=== PATIENT | male | born 1985 | race Caucasian/White ===

== ENCOUNTER 2017-09-24 22:37 | Emergency (ER) | payer MEDICAID ==
[~2017-09-24] VITALS: Ht 167.6 cm; Wt 95.3 kg
[2017-09-24 22:48] VITALS: BP_SYST 117
--- NOTE | 2017-09-24 23:27 | NUR ---
Placed in room 07 . Side rails up. Report given to NIYAH Arcos.
--- NOTE | 2017-09-24 23:45 | NUR ---
Patient placed in Hallway to await MD evaluation.
--- NOTE | 2017-09-24 23:50 | NUR ---
Patient to ER via triage with family with c/o rash to face and eye brow area x 2 days. No new food, soaps, detergents. Patient denies pain, but does c/o itching to the area, patient also noticed to have some slight swelling to the area. Patient sitting in chair in position of comfort with family at side. Awaiting evaluation by ER MD, will continue to observe and assess.
--- NOTE | 2017-09-24 23:55 | NUR ---
Dr Ontiveros at chair side to evaluate patient.
[2017-09-25 00:20] VITALS: BP_SYST 110
--- NOTE | 2017-09-25 00:20 | NUR ---
Patient given written and verbal discharge instructions and verbalizes understanding. ER MD discussed with patient the results and treatment provided. Patient in stable condition. ID arm band removed. Rx of Atarax, Hydrocortisone Cream given. Patient educated on pain management and to follow up with PMD. Pain Scale 0. Opportunity for questions provided and answered. Patient left ER ambulating with slow, steady gait in no acute distress with family at side. Patient's family verbalized understanding of aftercare instructions.
== END 2017-09-25 00:20 | disposition home or self-care (01) ==
LOC: SED 22:37
DX: L20.9 Atopic dermatitis, unspecified (principal)
CPT/HCPCS: 99283

== ENCOUNTER 2019-08-27 05:55 | Inpatient (IN) | payer OTHER, MEDICAID ==
[~2019-08-27] VITALS: Ht 162.6 cm; Wt 106.6 kg
[2019-08-27 06:21] VITALS: BP_SYST 124
--- NOTE | 2019-08-27 06:27 | NUR ---
Ambulatory to bed 3 accompanied by parents.
--- NOTE | 2019-08-27 06:35 | NUR ---
Patient was BIB parents c/o cough, sore throat and intermittent fever x 2 days. Pt was seen at urgent care and was prescribed Zithromax. Per mother pt is more lethargic due to being sick. Pt has down syndrome. NO other injuries/complaints per patient or noted.
--- NOTE | 2019-08-27 06:40 | NUR ---
ER Dr. Macias at bedside examining patient.
--- NOTE | 2019-08-27 07:10 | NUR ---
RT at bedside administering breathing treatment.
--- NOTE | 2019-08-27 07:13 | NUR ---
Report given to NIYAH Christian. All care endorsed.
[2019-08-27] MEDS ORDERED: PIPERACILLIN/TAZO 3.375 GM in NS 50 ML IV ONE (07:15)
[2019-08-27] MEDS ORDERED: VANCOMYCIN HCL 1,000 MG in NS 250 ML IV ONE (07:15)
[2019-08-27] MEDS ORDERED: IPRATROPIUM/ALBUTEROL SULFATE 3 ML AMPUL.NEB (DUONEB) INH ONE (07:15)
[2019-08-27] MEDS ORDERED: AZITHROMYCIN 500 MG in NS 250 ML IV ONE (07:15)
[2019-08-27] MEDS ORDERED: NACL 0.9% 1,000 ML IV ONE (07:15)
--- NOTE | 2019-08-27 07:15 | NUR ---
RT at bedside administering breathing treatment.
[2019-08-27] MEDS ORDERED: IPRATROPIUM/ALBUTEROL SULFATE 3 ML AMPUL.NEB (DUONEB) ONE (07:22)
--- NOTE | 2019-08-27 07:25 | NUR ---
# 18 gauge angiocath placed to RAC. Use of asceptic technique. Opsite placed over site. Blood return noted. Blood for lab drawn from site. Flushed with 10 cc of normal saline. No evidence of infiltration noted. Patient tolerated well.
[2019-08-27] MEDS ORDERED: OSELTAMIVIR PHOSPHATE 75 MG CAPSULE PO ONE (07:30)
--- NOTE | 2019-08-27 07:30 | NUR ---
Administered Zosyn, Vancomycin, Azithromax, Tamiflu and NS as scheduled and ordered by Dr. Ontiveros. Patient tolerated the medications well. Please see eMAR for details.
[2019-08-27 07:53] LABS: BASOPHILS # (AUTO) 0.1 K/uL (0.0-0.2); BASOPHILS % (AUTO) 1.2 % (0.0-2.0); EOSINOPHILS % (AUTO) 0.1 % (0.0-4.0); HEMATOCRIT 46.7 % (36-54); HEMOGLOBIN 15.7 g/dL (14.0-18.0); LYMPHOCYTES # (AUTO) 0.7 K/uL (1.0-5.5); LYMPHOCYTES % (AUTO) 10.4 % (20.5-51.5); MEAN CORPUSCULAR HEMOGLOBIN 30 pg (27-31); MEAN CORPUSCULAR HGB CONC 34 % (32-36); MEAN CORPUSCULAR VOLUME 89 fL (79.0-98.0); MONOCYTES # (AUTO) 0.6 K/uL (0.0-1.0); MONOCYTES % (AUTO) 9.2 % (1.7-9.3); NEUTROPHILS % (AUTO) 79.1 % (40.0-70.0); PLATELET COUNT (AUTO) 117 K/uL (130-430); RED BLOOD CELL COUNT(AUTO) 5.23 MIL/uL (4.2-6.2); RED CELL DISTRIBUTION WIDTH 15.2 % (9.0-15.0); WHITE BLOOD COUNT (AUTO) 6.4 K/uL (4.8-10.8)
[2019-08-27] MEDS ORDERED: AZITHROMYCIN 500 MG/VIAL (ZITHROMAX) IV ONE (07:55)
[2019-08-27] MEDS ORDERED: PIPERACILLIN/TAZOBACTAM 3.375 GM/VIAL (ZOSYN) IV ONE (07:56)
[2019-08-27] MEDS ORDERED: VANCOMYCIN HCL 1000 MG/VIAL IV ONE (07:56)
[2019-08-27 08:11] LABS: CALCIUM 8.1 mg/dL (8.4-11.0); CREATININE 1.06 mg/dL (0.55-1.30); POTASSIUM 3.9 mmol/L (3.5-5.1)
[2019-08-27 08:16] LABS: ALBUMIN 3.3 g/dL (3.4-4.8); TOTAL BILIRUBIN 0.6 mg/dL (0.0-1.0)
--- NOTE | 2019-08-27 10:24 | NUR ---
Patient will try to give us a urine sample again. Dad helping at bedside.
--- NOTE | 2019-08-27 10:44 | NUR ---
Received orders from Dr. Bermeo. Orders placed. Called for bed, spoke with Brianda.
[2019-08-27] MEDS: LevALBUTEROL HCL 1.25 MG/0.5 ML *CONC.* VIAL.NEB (XOPENEX CONC.) INH SCH ×4 (11:00→23:56)
--- NOTE | 2019-08-27 11:02 | NUR ---
Spoke with Remedios, will wait for an isolation room.
--- NOTE | 2019-08-27 11:42 | NUR ---
ADMISSION NOTE Received patient from ER via guragata, received report from ER/ RN. Patient admitted with diagnosis of PNEUMONIA. Patient oriented to hospital routine, call light, toileting and safety-patient .
--- NOTE | 2019-08-27 11:50 | NUR ---
Patient alert/oriented x3 , ambulatory , oxygen saturation 97 % with 2 l/nc denies any pain , discussed to family and patient to plan of care , isolation droplets , handwashing verbalized understanding , father/brother at the bedside.
--- NOTE | 2019-08-27 11:50 | NUR ---
Patient will be admitted to care of DR. ASENCIO. Admitted to MS unit. Will go to room 135B. Belongings list completed. Complete and up to date summary report printed. SBAR report given TO CLAIRE at bedside with opportunity for questions.
[2019-08-27 11:52] VITALS: BP_SYST 139
[2019-08-27 12:56] VITALS: BP_SYST 136
[2019-08-27] MEDS: KCL 20 mEq in D5/0.45NS 1000mL 1,000 ML IV SCH ×2 (13:06→23:41)
[2019-08-27] MEDS ORDERED: AZITHROMYCIN 500 MG in NS 250 ML IV SCH ×2 (14:00→15:00)
[2019-08-27] MEDS: cefTRIAXone 1 GM in D5W 50 ML IV SCH (15:37)
[2019-08-27 15:38] VITALS: BP_SYST 144
--- NOTE | 2019-08-27 16:13 | NUR ---
Afebrile , due antibiotic given with out adverse reaction. Addendum: 08/27/19 at 1616 by Remedios Batista RN on droplets isolation positive influenza B, family was informed proper handwashing,protective barrier verbalized understanding.
--- NOTE | 2019-08-27 16:46 | NUR ---
CONSULTATION PAGED REASON FOR CONSULTATION:PNEUMONIA WAS CONSULT CALLED?Y PERSON WHO WAS NOTIFIED:LILLY CONSULTING PHYSICIAN:LIONEL TOWNSEND ( BULK [employer]US[employer] CASING TIER OFF) CORPORATE EVENTS DIRECTOR SPECIALTY:ID CORPORATE EVENTS DIRECTOR PHONE NUMBER:[phone] REQUESTING PHYSICIAN:DARIA PHAN
[2019-08-27] MEDS: ACETAMINOPHEN 325 MG TABLET PO PRN (18:04)
--- NOTE | 2019-08-27 19:20 | NUR ---
OPENING NOTE RECEIVED CARE OF PT AND SBAR REPORT. PT IS AWAKE AND ALERT, ABLE TO VERBALIZE NEEDS, FAMILY IS AT BEDSIDE. PT SITTING UP IN BED, BREATHING IS EVEN AND UNLABORED TO O2 VIA NC AT 3L. NO S/S OF RESPIRATORY DISTRESS NOTED. IVF INFUSING AT ORDERED RATE, NO S/S OF INFILTRATION AT IV SITE. DROPLET PRECAUTIONS ARE IN PLACE. SAFETY PRECAUTIONS MAINTAINED: BED IS LOCKED IN LOWEST POSITION, SIDE RAILS UP X2, CALL LIGHT IS WITH PT. WILL CONTINUE TO MONITOR.
[2019-08-27] MEDS: OSELTAMIVIR PHOSPHATE 75 MG CAPSULE PO SCH (21:22)
[2019-08-27] MEDS: ENOXAPARIN SODIUM 40 MG/0.4 ML SYRINGE SUBCUT SCH (21:23)
--- NOTE | 2019-08-27 21:23 | NUR ---
MEDICATION PASS SCHEDULED TAMIFLU AND LOVENOX ADMINISTERED. MEDICATION INDICATIONS AND POTENTIAL SIDE EFFECTS DISCUSSED WITH PT AND FAMILY, FAMILY VERBALIZED UNDERSTANDING. NO S/S OF ACUTE DISTRESS. IVF INFUSING AT ORDERED RATE. SAFETY AND FALL PRECAUTIONS MAINTAINED. DROPLET PRECAUTIONS ARE IN PLACE. WILL MONITOR.
--- NOTE | 2019-08-27 23:41 | NUR ---
IVF BAG CHANGE NEW BAG HUNG AND REGULATED TO INFUSE AT ORDERED RATE. NO S/S OF INFILTRATION AT IV SITE. SAFETY PRECAUTIONS ARE IN PLACE. DROPLET PRECAUTIONS MAINTAINED. WILL MONITOR.
[2019-08-28 00:18] VITALS: BP_SYST 115
--- NOTE | 2019-08-28 01:45 | NUR ---
RN ROUNDS: PT RESTING IN BED, BREATHING IS UNLABORED, NO S/S OF ACUTE DISTRESS. PT'S FAMILY IS AT BEDSIDE. IVF INFUSING AT ORDERED RATE. SAFETY AND DROPLET PRECAUTIONS ARE IN PLACE. WILL MONITOR.
[2019-08-28] MEDS: LevALBUTEROL HCL 1.25 MG/0.5 ML *CONC.* VIAL.NEB (XOPENEX CONC.) INH SCH ×6 (03:00→23:08)
--- NOTE | 2019-08-28 03:35 | NUR ---
RN ROUNDS: PT RESTING IN BED WITH HIS FAMILY AT BEDSIDE. NO S/S OF ACUTE DISTRESS. BREATHING IS UNLABORED TO O2 AT 3L VIA NC. SAFETY AND DROPLET PRECAUTIONS REMAIN IN PLACE. WILL MONITOR.
--- NOTE | 2019-08-28 05:31 | NUR ---
SPOKE TO DR. ASENCIO TO REPORT PT'S FAMILY REQUEST FOR COUGH MEDICATION AND STOOL SOFTENER. NEW ORDERS RECEIVED. WILL IMPLEMENT.
--- NOTE | 2019-08-28 06:34 | NUR ---
CLOSING NOTE PT IS AWAKE AND ALERT, ABLE TO VERBALIZE NEEDS, FAMILY IS AT BEDSIDE. PT SITTING UP IN BED, BREATHING IS EVEN AND UNLABORED TO O2 VIA NC AT 3L. NO S/S OF RESPIRATORY DISTRESS NOTED. IVF INFUSING AT ORDERED RATE, NO S/S OF INFILTRATION AT IV SITE. DROPLET PRECAUTIONS ARE IN PLACE. SAFETY PRECAUTIONS MAINTAINED: BED IS LOCKED IN LOWEST POSITION, SIDE RAILS UP X2, CALL LIGHT IS WITH PT. WILL ENDORSE CARE TO DAY SHIFT RN.
[2019-08-28] MEDS: DOCUSATE SODIUM 100 MG CAPSULE PO SCH (09:00)
[2019-08-28] MEDS: OSELTAMIVIR PHOSPHATE 75 MG CAPSULE PO SCH ×2 (10:29→21:28)
[2019-08-28] MEDS: AZITHROMYCIN 500 MG in NS 250 ML IV SCH (10:30)
[2019-08-28] MEDS: guaiFENesin/DEXTROMETHORPHAN 10 ML UDC PO PRN ×2 (10:32→22:20)
[2019-08-28 12:14] VITALS: BP_SYST 130
[2019-08-28] MEDS: cefTRIAXone 1 GM in D5W 50 ML IV SCH (14:19)
[2019-08-28] MEDS: KCL 20 mEq in D5/0.45NS 1000mL 1,000 ML IV SCH (14:25)
[2019-08-28 16:38] VITALS: BP_SYST 129
[2019-08-28 20:00] VITALS: BP_SYST 121
[2019-08-28] MEDS: ENOXAPARIN SODIUM 40 MG/0.4 ML SYRINGE SUBCUT SCH (21:30)
--- NOTE | 2019-08-28 22:50 | NUR ---
DR ASENCIO PAGED THE PATIENT MOTHER REQUESTING FOR SLEEPING MEDICATION AND THE HR AT TIMES GO UP 112/MIN.
--- NOTE | 2019-08-28 23:27 | NUR ---
DR ASENCIO PAGED THE PATIENR FAMILY IS REQUESTING FOR A SLEEPING MEDICATION, DOES NOT SLEEP WELL SINCE ADMISSION.
[2019-08-29] VITALS: BP_SYST 125
[2019-08-29] MEDS: LevALBUTEROL HCL 1.25 MG/0.5 ML *CONC.* VIAL.NEB (XOPENEX CONC.) INH SCH ×5 (03:00→20:39)
[2019-08-29 04:00] VITALS: BP_SYST 146
[2019-08-29] MEDS: KCL 20 mEq in D5/0.45NS 1000mL 1,000 ML IV SCH ×2 (04:03→16:56)
[2019-08-29] MEDS: guaiFENesin/DEXTROMETHORPHAN 10 ML UDC PO PRN ×2 (06:10→16:56)
--- NOTE | 2019-08-29 07:30 | NUR ---
Opening note patient resting in bed at this time, A/ox3, no complaints of pain. IV patent, intact, and infusing fluids as ordered. No adverse side effects noted. No infiltration noted. On droplet isolation precautions for Influenza B, family aware, and educated on reason for precautions. On safety and isolation precautions, HOB kept elevated, bed alarm on, 3 side rails up, call light within reach. patient in stable condition. Will continue to monitor.
[2019-08-29 08:00] VITALS: BP_SYST 132
[2019-08-29] MEDS: DOCUSATE SODIUM 100 MG CAPSULE PO SCH (09:04)
[2019-08-29] MEDS: AZITHROMYCIN 500 MG in NS 250 ML IV SCH (09:04)
[2019-08-29] MEDS: OSELTAMIVIR PHOSPHATE 75 MG CAPSULE PO SCH ×2 (09:04→20:12)
--- NOTE | 2019-08-29 09:30 | NUR ---
medications All morning medications given as ordered. no adverse side effects noted.
--- NOTE | 2019-08-29 11:30 | NUR ---
rounds patient resting in bed at this time, mother at bedside. no complaints of pain. IV patent, intact, and infusing fluids as ordered.
[2019-08-29 12:23] VITALS: BP_SYST 131
--- NOTE | 2019-08-29 13:00 | NUR ---
lunch patient sitting up in bed at this time, eating lunch, tolerating well. no nausea, no vomiting noted. No complaints of abdominal pain.
[2019-08-29] MEDS: cefTRIAXone 1 GM in D5W 50 ML IV SCH (13:22)
--- NOTE | 2019-08-29 15:00 | NUR ---
rounds patient sitting up in bed. Offered to assist patient to the restroom. Mother assisted patient to the restroom and back to bed, patient noted with steady gait. No other needs at this time.
[2019-08-29 16:29] VITALS: BP_SYST 133
--- NOTE | 2019-08-29 18:30 | NUR ---
closing note patient resting in bed at this time, A/ox3, no complaints of pain. IV patent, intact, and infusing fluids as ordered. No adverse side effects noted. No infiltration noted. On droplet isolation precautions for Influenza B, family aware, and educated on reason for precautions. On safety and isolation precautions, HOB kept elevated, bed alarm on, 3 side rails up, call light within reach. patient in stable condition. All needs met.
--- NOTE | 2019-08-29 19:00 | NUR ---
INITIAL NOTES PATIENT IS LAYING IN BED AND STABLE. NO S/S OF RESPIRATORY DISTRESS NOTED. PATIENT WAS SUCCESSFULLY ABLE TO DEMONSTRATE USAGE OF CALL LIGHT AT THIS TIME WITH THE ASSISTANCE OF FAMILY MEMBER. PATIENT FAMILY MEMBER IS BY BEDSIDE. PLAN OF CARE WAS DISCUSSED WITH FAMILY AND PATIENT AT THIS TIME. FALL, SAFETY, ASPIRATION, RESPIRATORY, AND DROPLET PRECAUTIONS WILL BE PLACED THROUGHOUT THE SHIFT.
[2019-08-29 19:10] VITALS: BP_SYST 131
[2019-08-29] MEDS: ENOXAPARIN SODIUM 40 MG/0.4 ML SYRINGE SUBCUT SCH (20:16)
--- NOTE | 2019-08-29 21:00 | NUR ---
ROUNDING PATIENT IS LAYING IN BED AND STABLE. NO S/S OF RESPIRATORY DISTRESS NOTED. FAMILY IS BY BEDSIDE. CALL LIGHT IN REACH. BED IS LOCKED, ALARMED, AND AT THE LOWEST POSITION.
--- NOTE | 2019-08-29 23:30 | NUR ---
DR. ELIF BETHGD AT THIS TIME PER PATIENT REQUEST. PATIENT'S FAMILY MEMBER REQUESTED FOR SCDS, DESPITE PATIENTS EDUCATION ON LOVENOX. PATIENT REQUESTED FOR SLEEPING MEDICATION.
--- NOTE | 2019-08-29 23:40 | NUR ---
DR. ASENCIO CALLED BACK. DR. ASENCIO CALLED BACK. ORDERS RECEIVED. WILL FOLLOW ORDERS.
[2019-08-29] MEDS ORDERED: TEMAZEPAM 15 MG CAPSULE PO ONE (23:45)
[2019-08-30] MEDS ORDERED: TEMAZEPAM 15 MG CAPSULE PO ONE (00:15)
[2019-08-30 00:24] VITALS: BP_SYST 125
--- NOTE | 2019-08-30 01:37 | NUR ---
ROUNDING PATIENT IS SLEEPING IN BED AND STABLE. NO S/S OF RESPIRATORY DISTRESS NOTED. CALL LIGHT IN REACH. BED IS LOCKED, ALARMED, AND AT THE LOWEST POSITION. WILL CONTINUE TO MONITOR.
--- NOTE | 2019-08-30 03:37 | NUR ---
ROUNDING PATIENT IS SLEEPING AND STABLE. NO S/S OF RESPIRATORY DISTRESS NOTED. CALL LIGHT IN REACH. BED IS LOCKED, ALARMED, AND AT THE LOWEST POSITION. WILL CONTINUE TO MONITOR.
[2019-08-30] MEDS: KCL 20 mEq in D5/0.45NS 1000mL 1,000 ML IV SCH ×2 (05:49→16:42)
--- NOTE | 2019-08-30 06:19 | NUR ---
CLOSING NOTES PATIENT IS SLEEPING IN BED AND STABLE. FAMILY IS BY BEDSIDE. PATIENT SHOWS NO S/S OF RESPIRATORY DISTRESS AT THIS TIME. FALL, SAFETY, ASPIRATION, RESPIRATORY, AND DROPLET PRECAUTIONS HAS BEEN PLACED THROUGHOUT THE SHIFT. WILL CONTINUE TO MONITOR UNTIL REPORT IS GIVEN TO AM NURSE BY BEDSIDE.
[2019-08-30] MEDS: LevALBUTEROL HCL 1.25 MG/0.5 ML *CONC.* VIAL.NEB (XOPENEX CONC.) INH SCH ×5 (07:56→23:12)
[2019-08-30 08:09] VITALS: BP_SYST 131
[2019-08-30] MEDS: DOCUSATE SODIUM 100 MG CAPSULE PO SCH (08:37)
[2019-08-30] MEDS: guaiFENesin/DEXTROMETHORPHAN 10 ML UDC PO PRN ×2 (08:37→22:26)
[2019-08-30] MEDS: AZITHROMYCIN 500 MG in NS 250 ML IV SCH (08:37)
[2019-08-30] MEDS: OSELTAMIVIR PHOSPHATE 75 MG CAPSULE PO SCH ×2 (08:37→22:26)
--- NOTE | 2019-08-30 09:00 | NUR ---
Rounds patient ambulated to the restroom and back to bed with steady gait. breakfast tray removed. Water pitcher refilled. No other needs at this time.
--- NOTE | 2019-08-30 11:25 | NUR ---
Rounds patient resting in bed at this time, no complaints of pain. Iv patent, intact, and infusing fluids as ordered. No adverse side effects. No infiltration noted.
[2019-08-30] MEDS: cefTRIAXone 1 GM in D5W 50 ML IV SCH (13:29)
--- NOTE | 2019-08-30 13:45 | NUR ---
ambulating Patient ambulating inside the room. ambulated to the restroom and back to bed with steady gait. linens changed. no other needs at this time.
[2019-08-30 13:56] VITALS: BP_SYST 126
--- NOTE | 2019-08-30 15:30 | NUR ---
rounds patient resting in bed at this time, no complaints of pain. IV patent, intact, and infusing fluids as ordered. No adverse side effects.
[2019-08-30 16:54] VITALS: BP_SYST 131
--- NOTE | 2019-08-30 17:00 | NUR ---
rounds patient resting in bed at this time, no complaints of pain. Water pitcher refilled, no other needs at this time.
--- NOTE | 2019-08-30 18:18 | NUR ---
Closing note Patient resting in bed at this time, A/ox3, no complaints of pain. IV patent, intact, and infusing fluids as ordered. No adverse side effects noted. No infiltration noted. On droplet isolation precautions for Influenza B, family aware, and educated on reason for precautions. On safety and isolation precautions, HOB kept elevated, bed alarm on, 3 side rails up, call light within reach. patient in stable condition. All needs met.
--- NOTE | 2019-08-30 19:30 | NUR ---
OPENING NOTES Received patient, resting in bed watching tablet, no signs of acute respiratory distress observed. IVF running, dressings c/d/i. Family at bedside. Getting breathing treatment. Call light within reach, bed alarm on, bed at lowest position. Will continue to monitor.
[2019-08-30 20:00] VITALS: BP_SYST 129
[2019-08-30] MEDS: TEMAZEPAM 15 MG CAPSULE PO SCH (22:26)
[2019-08-30] MEDS: ENOXAPARIN SODIUM 40 MG/0.4 ML SYRINGE SUBCUT SCH (22:28)
--- NOTE | 2019-08-30 22:30 | NUR ---
Patient is provided with cough syrup and warm blankets. No respiratory distress observed at this time. Will continue to monitor.
--- NOTE | 2019-08-30 23:21 | NUR ---
Patient is resting comfortably. IVF running, dressings c/d/i. Patient has no pain at this time. Will continue to monitor.
[2019-08-31 00:23] VITALS: BP_SYST 128
[2019-08-31] MEDS: ACETAMINOPHEN 325 MG TABLET PO PRN (02:42)
[2019-08-31] MEDS: LevALBUTEROL HCL 1.25 MG/0.5 ML *CONC.* VIAL.NEB (XOPENEX CONC.) INH SCH ×6 (03:00→23:25)
--- NOTE | 2019-08-31 03:37 | NUR ---
Patient is coughing and family requests cough syrup. Patient is offered warm water and patient is not coughing at the moment. Patient also provided Tylenol for pain, patient tolerated well. Will continue to monitor.
[2019-08-31] MEDS: KCL 20 mEq in D5/0.45NS 1000mL 1,000 ML IV SCH ×2 (05:04→20:59)
--- NOTE | 2019-08-31 07:30 | NUR ---
CLOSING NOTES Received patient, resting in bed with mother at bedside, no signs of acute respiratory distress observed. IVF running, dressings c/d/i. Call light within reach, bed alarm on, bed at lowest position. All needs met throughout shift. Will endorse care to oncoming shift.
--- NOTE | 2019-08-31 07:45 | NUR ---
OPENING NOTES Received pt. in bed, family at bedside. no signs of acute respiratory distress observed, no sob. Vitals wnl. no fever. IVF running iv access patent, dressings clean and dry. Safety precaution in place. Call light within reach, bed alarm on, bed at lowest position. encouraged pt and family to call for assist. Will continue to monitor.
[2019-08-31 08:00] VITALS: BP_SYST 120
[2019-08-31] MEDS: AZITHROMYCIN 500 MG in NS 250 ML IV SCH (08:22)
[2019-08-31] MEDS: DOCUSATE SODIUM 100 MG CAPSULE PO SCH (09:09)
[2019-08-31] MEDS: OSELTAMIVIR PHOSPHATE 75 MG CAPSULE PO SCH ×2 (09:09→21:02)
--- NOTE | 2019-08-31 10:00 | NUR ---
pt in chair, no sob, no distress. family at bedside. will cont to monitor.
[2019-08-31 11:14] VITALS: BP_SYST 143
--- NOTE | 2019-08-31 12:12 | NUR ---
pt in chair, watching tv, family at bedside. no c/o pain. no sob, no resp distress.
--- NOTE | 2019-08-31 13:11 | NUR ---
Dietitian Recommendations *Recommend Mechanical soft finely chopped diet w/ gravy and sauce Q meal. *Adhere to food preferences. *May add ONS if PO intake remains <50% by F/U. Please see Nutritional Assessment for details FRNAKIE, RD
[2019-08-31] MEDS: cefTRIAXone 1 GM in D5W 50 ML IV SCH (13:42)
--- NOTE | 2019-08-31 13:47 | NUR ---
pt on chair, no sob, no distress. iv abx given, family at bedside.
[2019-08-31 15:12] VITALS: BP_SYST 106
[2019-08-31] MEDS: guaiFENesin/DEXTROMETHORPHAN 10 ML UDC PO PRN (17:49)
--- NOTE | 2019-08-31 17:50 | NUR ---
pt given cough medication, pt's dad at bedside. pt sitting on chair.
--- NOTE | 2019-08-31 20:07 | NUR ---
closing notes, pt has been stable, no sob, no pain, all meds offered and taken. iv fluids infusing well. pt kept on droplet isolation. endorsed to night nurse.
[2019-08-31] MEDS: ENOXAPARIN SODIUM 40 MG/0.4 ML SYRINGE SUBCUT SCH (21:02)
[2019-08-31] MEDS: TEMAZEPAM 15 MG CAPSULE PO SCH (21:03)
[2019-09-01 00:20] VITALS: BP_SYST 126
[2019-09-01] MEDS: ACETAMINOPHEN 325 MG TABLET PO PRN ×2 (00:30→12:08)
[2019-09-01] MEDS: guaiFENesin/DEXTROMETHORPHAN 10 ML UDC PO PRN ×4 (00:34→21:13)
[2019-09-01] MEDS: LevALBUTEROL HCL 1.25 MG/0.5 ML *CONC.* VIAL.NEB (XOPENEX CONC.) INH SCH ×6 (02:44→23:11)
[2019-09-01 04:00] VITALS: BP_SYST 135
[2019-09-01 08:00] VITALS: BP_SYST 101
[2019-09-01] MEDS: DOCUSATE SODIUM 100 MG CAPSULE PO SCH (08:28)
[2019-09-01] MEDS: OSELTAMIVIR PHOSPHATE 75 MG CAPSULE PO SCH ×2 (08:29→20:58)
[2019-09-01] MEDS: KCL 20 mEq in D5/0.45NS 1000mL 1,000 ML IV SCH ×2 (09:35→21:00)
--- NOTE | 2019-09-01 11:00 | NUR ---
PT ASSISTED TO BATHROOM, PT AMBULATES WELL WITH STEADY GAIT.
[2019-09-01 12:49] VITALS: BP_SYST 120
[2019-09-01] MEDS: cefTRIAXone 1 GM in D5W 50 ML IV SCH (14:23)
[2019-09-01 17:00] VITALS: BP_SYST 138
[2019-09-01 19:00] VITALS: BP_SYST 135
--- NOTE | 2019-09-01 19:06 | NUR ---
CLOSING NOTES, PT HAS BEEN STABLE THE WHOLE SHIFT, GIVEN TYLENOL FOR HEADACHE, NO FEVER. NO UNTOWARD INCIDENT. NO SOB. ALL MEDS OFFERED AND TAKEN. ALL NEEDS MET. WILL ENDORSE TO NIGHT NURSE.
--- NOTE | 2019-09-01 20:00 | NUR ---
RECEIVED PT IN BED V/S AND ASSESSMENT DONE SAME STABLE ,FAMILY AT BEDSIDE NO DISTRESS NOTED AT THIS TIME
[2019-09-01] MEDS: ENOXAPARIN SODIUM 40 MG/0.4 ML SYRINGE SUBCUT SCH (20:58)
[2019-09-01] MEDS: TEMAZEPAM 15 MG CAPSULE PO SCH (21:00)
[2019-09-02] VITALS (7 sets, daily range): BP systolic 107–143
--- NOTE | 2019-09-02 | NUR ---
PT ASLEEP NO DISTRESS NOTED AT THIS TIME
[2019-09-02] MEDS: LevALBUTEROL HCL 1.25 MG/0.5 ML *CONC.* VIAL.NEB (XOPENEX CONC.) INH SCH ×4 (03:44→15:04)
--- NOTE | 2019-09-02 07:30 | NUR ---
INITIAL NOTE PT RESTING IN BED, NO ACUTE DISTRESS NOTED. PT ON ROOM AIR, BREATHING EVEN AND UNLABORED. DROPLET PRECAUTIONS IN PLACE. CALL LIGHT WITHIN REACH, BED IN LOW AND LOCKED POSITION WITH BED ALARM.
[2019-09-02] MEDS: DOCUSATE SODIUM 100 MG CAPSULE PO SCH (09:12)
[2019-09-02] MEDS: KCL 20 mEq in D5/0.45NS 1000mL 1,000 ML IV SCH (09:14)
--- NOTE | 2019-09-02 09:36 | NUR ---
RN ROUNDS BROTHER AND MOTHER AT BEDSIDE. PT SITTING UP ON BEDSIDE CHAIR. PT COOPERATIVE AND IN PLEASANT MOOD. MORNING MEDICATIONS ADMINISTERED. UPDATED FAMILY ON PLAN OF CARE. POSSIBLE DISCHARGE FOR TODAY.
--- NOTE | 2019-09-02 11:40 | NUR ---
RN ROUNDS PT AWAKE, SITTING IN CHAIR. PT DENIES ANY SOB. FAMILY AT BEDSIDE.
--- NOTE | 2019-09-02 14:00 | NUR ---
RN ROUNDS SCHEDULED ANTIBIOTICS ADMINISTERED. NO CHANGE IN PT ASSESSMENT. FAMILY AT BEDSIDE.
[2019-09-02] MEDS: cefTRIAXone 1 GM in D5W 50 ML IV SCH (14:04)
--- NOTE | 2019-09-02 16:00 | NUR ---
RN ROUNDS NO CHANGE IN ASSESSMENT. FAMILY AT BEDSIDE WILL CONTINUE TO MONITOR.
--- NOTE | 2019-09-02 18:45 | NUR ---
CLOSING NOTE/DR. ASENCIO SPOKE WITH MD AT NURSES STATION. MD TO DISCHARGE PT WITH PRESCRIPTIONS. PT AWAKE, DENIES ANY SOB. IVF INFUSING WELL. CALL LIGHT WITHIN REACH, BED IN LOW AND LOCKED POSITION WITH BED ALARM ON. ALL NEEDS MET THROUGHOUT SHIFT. ENDORSED DISCHARGE TO RISK MANAGEMENT DIRECTOR RN.
== END 2019-09-02 19:30 | disposition home or self-care (01) | DRG 194 ==
LOC: SED 05:55 → SMU 10:40
PROVIDERS: ADMIT Family Medicine; ATTEND Family Medicine
DX: J10.08 Influenza due to other identified influenza virus with other specified pneumonia (principal); Z68.41 Body mass index [BMI] 40.0-44.9, adult; R65.10 Systemic inflammatory response syndrome (SIRS) of non-infectious origin without acute organ dysfunction; J12.9 Viral pneumonia, unspecified; E66.9 Obesity, unspecified; Q90.9 Down syndrome, unspecified
CPT/HCPCS: 36415; 71045; 80053; 83605; 85025; 86710; 87040-TC; 94640; 94760; 96365; 96366; 96367; 99285; G9035; J0456; J0696; J1650; J2543; J3370; J7030; J7050; J7060; J7612; J7620

== ENCOUNTER 2023-07-18 05:30 | Inpatient (IN) | payer OTHER, MEDICAID ==
[~2023-07-18] VITALS: Ht 160 cm; Wt 119.3 kg
[~2023-07-18 05:30] MED LIST: ACET325T PO; BISA-140 PO; DOCU250C71 PO; HYDR-3919 PO; LOVI40 SUBCUT; VITD2000 PO
[2023-07-18] MEDS ORDERED: ACETAMINOPHEN 500 MG TABLET ONE (05:44)
[2023-07-18] MEDS ORDERED: ACETAMINOPHEN 500 MG TABLET PO ONE (07:00)
[2023-07-18] MEDS ORDERED: ceFAZolin SODIUM 2 GM in D5W 100 ML IV ONE (07:00)
[2023-07-18 09:36] VITALS: BP_SYST 134; PULSE 99; RESP 16; TEMP 98.7; O2SAT 94
[2023-07-18] MEDS ORDERED: INSU100V7 SUBCUT (10:41)
[2023-07-18 12:25] VITALS: BP_SYST 149; PULSE 103; RESP 20; TEMP 98.4; O2SAT 95
[2023-07-18] MEDS ORDERED: MENTHOL/ZINC OXIDE 113 GM OINT. TP PRN (15:00)
[2023-07-18 16:00] VITALS: BP_SYST 137; PULSE 107; RESP 18; TEMP 98.2
[2023-07-18 20:00] VITALS: BP_SYST 125; PULSE 100; RESP 19; TEMP 98.7
[2023-07-19] VITALS (8 sets, daily range): BP systolic 124–138; PULSE 92–108; RESP 17–20; TEMP 97.2–98.7; O2SAT 92–96
[2023-07-19] MEDS ORDERED: NALOXONE HCL 0.4 MG/ML AMP (NARCAN) IVP PRN (11:00)
[2023-07-19] MEDS ORDERED: ONDANSETRON HCL 4 MG/2 ML VIAL IVP PRN ×2 (11:00→12:15)
[2023-07-19] MEDS ORDERED: LORazepam 2 MG/ML VIAL IVP PRN (11:00)
[2023-07-19] MEDS ORDERED: MORPHINE 2 MG/ML INJ. SYRINGE IVP PRN (11:00)
[2023-07-19] MEDS ORDERED: MORPHINE 4 MG INJ. 4 MG/ML VIAL IVP PRN ×2 (11:00→12:15)
[2023-07-19 11:20] LABS: BASOPHILS # (AUTO) 0.1 K/uL (0.0-0.2); BASOPHILS % (AUTO) 1.3 % (0.0-2.0); EOSINOPHILS # (AUTO) 0.2 K/uL (0.0-0.4); EOSINOPHILS % (AUTO) 1.9 % (0.0-4.0); HEMATOCRIT 41.2 % (36-54); HEMOGLOBIN 13.3 g/dL (14.0-18.0); LYMPHOCYTES # (AUTO) 1.5 K/uL (1.0-5.5); LYMPHOCYTES % (AUTO) 19.4 % (20.5-51.5); MEAN CORPUSCULAR HEMOGLOBIN 28 pg (27-31); MEAN CORPUSCULAR HGB CONC 32 % (32-36); MEAN CORPUSCULAR VOLUME 88 fL (79.0-98.0); MONOCYTES # (AUTO) 0.4 K/uL (0.0-1.0); MONOCYTES % (AUTO) 5.3 % (1.7-9.3); NEUTROPHILS # (AUTO) 5.8 K/uL (1.8-7.7); NEUTROPHILS % (AUTO) 72.1 % (40.0-70.0); PLATELET COUNT (AUTO) 289 K/uL (130-430); RED BLOOD CELL COUNT(AUTO) 4.72 MIL/uL (4.2-6.2); RED CELL DISTRIBUTION WIDTH 15.5 % (9.0-15.0)
[2023-07-19 11:36] LABS: ALBUMIN 2.6 g/dL (3.4-4.8); CALCIUM 8.9 mg/dL (8.4-11.0); CREATININE 1.13 mg/dL (0.55-1.30); INR 1.1 (0.80-1.20); POTASSIUM 3.9 mmol/L (3.5-5.1); PROTHROMBIN TIME 11.2 SECS (9.5-12.5); TOTAL BILIRUBIN 0.5 mg/dL (0.0-1.0); TOTAL PROTEIN, SERUM 7.4 g/dL (6.4-8.3)
[2023-07-19] MEDS ORDERED: fentaNYL CITRATE/PF 100 MCG/2 ML AMP ONE (11:47)
[2023-07-19] MEDS ORDERED: MIDAZOLAM HCL 2 MG/2 ML VIAL (VERSED) ONE (11:47)
[2023-07-19] MEDS ORDERED: MORPHINE 4 MG INJ. 4 MG/ML VIAL ONE (11:47)
[2023-07-19] MEDS ORDERED: BUPIVACAINE /PF 0.25% 30 ML VIAL INJ ONE (12:01)
[2023-07-19] MEDS ORDERED: SUGAMMADEX SODIUM 200 MG/2 ML VIAL IV ONE (12:01)
[2023-07-19] MEDS ORDERED: LR 1,000 ML IV.SOLN IV ONE (12:01)
[2023-07-19] MEDS ORDERED: DESFLURANE 15 MIN GAS INH ONE (12:01)
[2023-07-19] MEDS ORDERED: SUCCINYLCHOLINE CHLORIDE 20 MG/ML(QUELICIN) ONE (12:01)
[2023-07-19] MEDS ORDERED: PROPOFOL 200MG/ 20ML VIAL (DIPRIVAN) IV ONE (12:01)
[2023-07-19] MEDS ORDERED: ROCURONIUM BROMIDE 10 MG/ML (ZEMURON) ONE (12:01)
[2023-07-19] MEDS ORDERED: NS IRRIG SOLN 1000 ML IR ONE (12:01)
[2023-07-19] MEDS ORDERED: DEXAMETHASONE SOD PHOSPHATE 4 MG/ML VIAL ONE (12:01)
[2023-07-19] MEDS ORDERED: WATER FOR IRRIGATION,STERILE 1,000 ML IRRIG.SOLN IR ONE (12:01)
[2023-07-19] MEDS ORDERED: MEPERIDINE HCL/PF 25 MG/ML DISP.SYRIN IVP PRN (12:15)
[2023-07-19] MEDS ORDERED: HYDROmorphone 1 MG/ML INJ. CARTRIDGE IVP PRN (12:15)
[2023-07-19] MEDS ORDERED: LR 1,000 ML IV SCH (12:15)
[2023-07-19 12:50] LABS: BILIRUBIN,URINE NEGATIVE (NEGATIVE); CLARITY/URINE CLEAR (CLEAR); COLOR,URINE YELLOW (YELLOW); GLUCOSE,URINE NEGATIVE (NEGATIVE); KETONES,URINE NEGATIVE (NEGATIVE); LEUKOCYTE ESTERASE ,URINE NEGATIVE (NEGATIVE); NITRITE, URINE NEGATIVE (NEGATIVE); PROTEIN URINE NEGATIVE (NEGATIVE); UROBILINOGEN,URINE 0.2 (0.2-1.0)
[2023-07-19 12:54] LABS: BLOOD, URINE TRACE (NEGATIVE)
[2023-07-19 13:51] LABS: BACTERIA,URINE None Seen /HPF (None Seen); WBC,URINE 0-3 /HPF (0-3)
[2023-07-19] MEDS ORDERED: MIDAZOLAM HCL 5 MG/5 ML VIAL ONE (15:36)
[2023-07-19] MEDS ORDERED: HYDROcodone/ACETAMIN 5-325 MG TAB (NORCO/ VICODIN) PO PRN (15:45)
[2023-07-19] MEDS ORDERED: NALOXONE HCL 2 MG/2 ML SYR (NARCAN) IVP PRN (15:45)
[2023-07-19] MEDS ORDERED: NALOXONE HCL 2 MG/2 ML SYR IVP PRN (15:45)
[2023-07-19] MEDS ORDERED: INSULIN REGULAR, HUMAN 100 UNITS/ML, 3 ML VIAL (humuLIN R) ONE (15:59)
[2023-07-19] MEDS ORDERED: LABETALOL HCL 20 MG/4 ML CARTRIDGE IVP ONE ×2 (16:06→16:15)
[2023-07-19] MEDS ORDERED: INSULIN NPH/REGULAR 70-30, 100 UNITS/ML, 3 ML VIAL SUBCUT ONE (16:15)
[2023-07-19] MEDS ORDERED: MIDAZOLAM HCL 2 MG/2 ML VIAL (VERSED) IVP ONE (16:15)
[2023-07-19] MEDS: HYDROcodone/ACETAMIN 5-325 MG TAB (NORCO/ VICODIN) PO PRN (21:55)
[2023-07-19] MEDS: CEFAZOLIN 2 GM IVPB PREMIX 50 ML IV SCH (22:41)
[2023-07-20 00:28] VITALS: BP_SYST 124; PULSE 118; RESP 20; TEMP 97.6; O2SAT 96
[2023-07-20 04:43] LABS: BASOPHILS % (AUTO) 0.2 % (0.0-2.0); HEMATOCRIT 38.1 % (36-54); HEMOGLOBIN 12.3 g/dL (14.0-18.0); LYMPHOCYTES # (AUTO) 1.2 K/uL (1.0-5.5); LYMPHOCYTES % (AUTO) 8.2 % (20.5-51.5); MEAN CORPUSCULAR HEMOGLOBIN 28 pg (27-31); MEAN CORPUSCULAR HGB CONC 32 % (32-36); MEAN CORPUSCULAR VOLUME 87 fL (79.0-98.0); MONOCYTES # (AUTO) 0.9 K/uL (0.0-1.0); MONOCYTES % (AUTO) 6.1 % (1.7-9.3); NEUTROPHILS # (AUTO) 12.1 K/uL (1.8-7.7); NEUTROPHILS % (AUTO) 85.5 % (40.0-70.0); PLATELET COUNT (AUTO) 298 K/uL (130-430); RED BLOOD CELL COUNT(AUTO) 4.39 MIL/uL (4.2-6.2); RED CELL DISTRIBUTION WIDTH 15.2 % (9.0-15.0); WHITE BLOOD COUNT (AUTO) 14.1 K/uL (4.8-10.8)
[2023-07-20 05:33] LABS: CALCIUM 8.5 mg/dL (8.4-11.0); CREATININE 1.15 mg/dL (0.55-1.30)
[2023-07-20] MEDS: CEFAZOLIN 2 GM IVPB PREMIX 50 ML IV SCH ×2 (05:35→16:14)
[2023-07-20] MEDS: ASPIRIN 81 MG TABLET(ECOTRIN) PO SCH ×2 (09:32→20:41)
[2023-07-20 09:36] VITALS: BP_SYST 104; PULSE 103; RESP 18; TEMP 98.1; O2SAT 93
[2023-07-20 12:00] VITALS: BP_SYST 114; PULSE 111; RESP 19; TEMP 97.9; O2SAT 97
[2023-07-20 16:05] VITALS: BP_SYST 109; PULSE 107; RESP 20; TEMP 98; O2SAT 95
[2023-07-20 19:00] VITALS: O2SAT 93
[2023-07-20 20:00] VITALS: BP_SYST 123; PULSE 111; RESP 20; TEMP 97.1; O2SAT 93
[2023-07-20] MEDS: HYDROcodone/ACETAMIN 5-325 MG TAB (NORCO/ VICODIN) PO PRN (20:41)
[2023-07-21 00:06] VITALS: BP_SYST 132; PULSE 123; RESP 22; TEMP 98.1; O2SAT 95
[2023-07-21] MEDS: HYDROcodone/ACETAMIN 5-325 MG TAB (NORCO/ VICODIN) PO PRN ×2 (05:38→15:32)
[2023-07-21 06:51] LABS: BASOPHILS # (AUTO) 0.1 K/uL (0.0-0.2); BASOPHILS % (AUTO) 1.2 % (0.0-2.0); EOSINOPHILS # (AUTO) 0.2 K/uL (0.0-0.4); EOSINOPHILS % (AUTO) 1.9 % (0.0-4.0); HEMATOCRIT 39.3 % (36-54); HEMOGLOBIN 12.7 g/dL (14.0-18.0); LYMPHOCYTES # (AUTO) 1.2 K/uL (1.0-5.5); LYMPHOCYTES % (AUTO) 12.1 % (20.5-51.5); MEAN CORPUSCULAR HEMOGLOBIN 28 pg (27-31); MEAN CORPUSCULAR HGB CONC 32 % (32-36); MEAN CORPUSCULAR VOLUME 88 fL (79.0-98.0); MONOCYTES # (AUTO) 0.8 K/uL (0.0-1.0); MONOCYTES % (AUTO) 8.2 % (1.7-9.3); NEUTROPHILS # (AUTO) 7.6 K/uL (1.8-7.7); NEUTROPHILS % (AUTO) 76.6 % (40.0-70.0); PLATELET COUNT (AUTO) 275 K/uL (130-430); RED BLOOD CELL COUNT(AUTO) 4.48 MIL/uL (4.2-6.2); RED CELL DISTRIBUTION WIDTH 15.5 % (9.0-15.0); WHITE BLOOD COUNT (AUTO) 9.9 K/uL (4.8-10.8)
[2023-07-21 07:19] LABS: CREATININE 0.92 mg/dL (0.55-1.30); POTASSIUM 3.8 mmol/L (3.5-5.1)
[2023-07-21 07:48] LABS: ERYTHROCYTE SEDIMENTATION RATE 80 MM/HR (0-15)
[2023-07-21 08:06] VITALS: BP_SYST 98; PULSE 107; RESP 18; TEMP 97.5; O2SAT 97
[2023-07-21] MEDS: ASPIRIN 81 MG TABLET(ECOTRIN) PO SCH (08:32)
[2023-07-21] MEDS ORDERED: HEPARIN SODIUM,PORCINE 5,000 UNITS/ML VIAL SUBCUT SCH (09:00)
[2023-07-21 10:30] VITALS: O2SAT 97
[2023-07-21 11:40] VITALS: BP_SYST 135; PULSE 110; RESP 16; TEMP 97; O2SAT 92
[2023-07-21] MEDS ORDERED: Aspirin Ec PO (12:53)
[2023-07-21] MEDS ORDERED: HYDR-3919 PO (13:17)
[2023-07-21 14:01] VITALS: BP_SYST 130; PULSE 81; RESP 16; TEMP 97.7; O2SAT 93
[2023-07-21 15:12] VITALS: BP_SYST 130; PULSE 81; RESP 16; TEMP 97.7; O2SAT 93
== END 2023-07-21 16:45 | DRG 492 ==
LOC: SMU 05:30 → SDS 05:30 → SMU 08:28 → SDS 08:29 → SMU 08:48
PROVIDERS: ADMIT Orthopaedic Surgery Sports Medicine; ATTEND Orthopaedic Surgery Sports Medicine
PROC: 0QSH04Z Reposition Left Tibia with Internal Fixation Device, Open Approach (ICD-10-PCS; principal; 2023-07-19 12:09)
DX: S82.142A Displaced bicondylar fracture of left tibia, initial encounter for closed fracture (principal); E43 Unspecified severe protein-calorie malnutrition; J96.00 Acute respiratory failure, unspecified whether with hypoxia or hypercapnia; Z68.42 Body mass index [BMI] 45.0-49.9, adult; Q90.9 Down syndrome, unspecified; D72.829 Elevated white blood cell count, unspecified; E66.9 Obesity, unspecified; V89.2XXA Person injured in unspecified motor-vehicle accident, traffic, initial encounter; Y93.89 Activity, other specified; Y92.89 Other specified places as the place of occurrence of the external cause; Y99.8 Other external cause status; Z79.4 Long term (current) use of insulin; Z79.899 Other long term (current) drug therapy
CPT/HCPCS: 36415; 71045; 76000; 80048; 80053; 81000; 81001; 81015; 82948; 82962; 85025; 85610-TC; 85651-TC; 87081; 93005; 93306; 97110-GP; C1713; J0330; J0690; J1100; J1644; J1815; J2060; J2250; J2270; J2704; J3010; J3465; J3490; J7060; J7120; L1830